=== PATIENT | male | born 1955 ===

== ENCOUNTER 2025-06-15 14:56 | Inpatient (IN) | payer MEDICARE, MEDICAID ==
[~2025-06-15] VITALS: Ht 180.3 cm; Wt 77.0 kg
[2025-06-15] MEDS ORDERED: ALBU18HF12 IH (17:33)
[2025-06-15] MEDS ORDERED: DOCU100C33 PO (17:33)
[2025-06-15] MEDS ORDERED: ASPI-1444 PO (17:33)
[2025-06-15] MEDS ORDERED: TRIL8 PO (17:33)
[2025-06-15] MEDS ORDERED: NYST30OI6 TP (17:33)
[2025-06-15] MEDS ORDERED: ATOR20TA65 PO (17:33)
[2025-06-15] MEDS ORDERED: TRI115O TP (17:33)
[2025-06-15] MEDS ORDERED: VALP250S27 PO (17:33)
[2025-06-15] MEDS ORDERED: LOPERAMIDE HCL 2 MG CAPSULE PO PRN (21:15)
[2025-06-15] MEDS ORDERED: PROMETHAZINE HCL 25 MG TABLET PO PRN (21:15)
[2025-06-15] MEDS ORDERED: MAG HYDROX/ALUMINUM HYD/SIMETH ES 30 ML SUSPENSION UDCUP PO PRN (21:15)
[2025-06-15] MEDS ORDERED: ACETAMINOPHEN 325 MG TABLET PO PRN (21:15)
[2025-06-15] MEDS ORDERED: OLANZapine 5 MG RAPDIS TABLET PO PRN (21:15)
[2025-06-15] MEDS ORDERED: TUBERCULIN, PURIFIED PROTEIN DERIVATIVE 5 TU/0.1 ML SYRINGE ID ONE ×2 (21:15)
[2025-06-15] MEDS ORDERED: ZOLPIDEM TARTRATE 10 MG TABLET PO PRN (21:15)
[2025-06-15] MEDS ORDERED: MAGNESIUM HYDROXIDE SUSPENSION 30 ML UDCUP PO PRN (21:15)
[2025-06-15] MEDS ORDERED: GuaiFENesin/D-METHORPHAN [SUGAR-FREE] 200-20MG/10 ML SYRUP UDCUP PO PRN (21:15)
[2025-06-15 21:20] LABS: CALCIUM, TOTAL 9.5 mg/dL (8.8-10.5); CREATININE 0.87 mg/dL (0.60-1.30); GLOMERULAR FILTR. RATE CALC > 60 mL/min (>60); GLUCOSE,RANDOM 100 mg/dL (70-110); PLATELET COUNT (AUTO) 217 K/uL (150-450); RED BLOOD CELL COUNT(AUTO) 4.28 MIL/uL (4.50-5.90); RED CELL DISTRIBUTION WIDTH 14.5 % (11.5-14.5); SODIUM SERUM 141 mmol/L (136-145); UREA NITROGEN, BLOOD 12 mg/dL (7-18); WHITE BLOOD COUNT (AUTO) 3.7 K/uL (4.5-11.0)
[2025-06-15 22:36] LABS: COVID AG,FIA SOURCE NASAL SWAB
[2025-06-15 22:53] LABS: SARS-COV2 (COVID) ANTIGEN,FIA Negative (Negative)
[2025-06-16 04:46] VITALS: BP 119/88; PULSE 82; RESP 18; TEMP 97.1; O2SAT 99
[2025-06-16] MEDS ORDERED: THIAMINE 100 MG TABLET PO SCH (09:00)
[2025-06-16] MEDS ORDERED: PALIPERIDONE PALMITATE 234 MG/1.5 ML SYRINGE IM ONE (09:00)
[2025-06-16] MEDS ORDERED: DULoxetine HCL 20 MG CAPSULE PO SCH (09:00)
[2025-06-16] MEDS: MULTIVITAMINS WITH MINERALS, THERAPEUTIC TABLET PO SCH (09:06)
[2025-06-16] MEDS: THIAMINE 100 MG TABLET PO SCH (09:07)
[2025-06-16] MEDS: FOLIC ACID 1 MG TABLET PO SCH (09:07)
[2025-06-16] MEDS: DULoxetine HCL 20 MG CAPSULE PO SCH (09:07)
[2025-06-16] MEDS: DIVALPROEX SODIUM 500 MG ER TABLET PO SCH (09:07)
[2025-06-16] MEDS: PALIPERIDONE PALMITATE 234 MG/1.5 ML SYRINGE IM ONE (09:45)
[2025-06-16] MEDS ORDERED: ALBUTEROL SULFATE HFA 90 MCG/PUFF 8 GM INHALER IH PRN (11:45)
[2025-06-16] MEDS: ASPIRIN 81 MG CHEWABLE TABLET PO SCH (12:44)
[2025-06-16 15:43] VITALS: BP 121/76; PULSE 80; RESP 18; TEMP 98.1; O2SAT 97
[2025-06-16 20:47] VITALS: BP 124/62; PULSE 77; RESP 18; TEMP 97.8; O2SAT 100
[2025-06-16] MEDS: MELATONIN 5 MG TABLET PO SCH (21:02)
[2025-06-16] MEDS: ATORVASTATIN CALCIUM 20 MG TABLET PO SCH (21:02)
[2025-06-16] MEDS: OLANZapine 10 MG RAPDIS TABLET PO SCH (21:02)
[2025-06-16] MEDS: MEMANTINE HCL 5 MG TABLET PO SCH (21:02)
[2025-06-17] MEDS ORDERED: PNEUMOCOCCAL VACCINE POLYVALENT 0.5 ML SYRINGE [PPSV23] IM. ONE (06:15)
[2025-06-17 10:19] VITALS: BP 121/60; PULSE 108; RESP 16; TEMP 97.7; O2SAT 95
[2025-06-17] MEDS ORDERED: MELA5TAB40 PO (18:03)
[2025-06-17] MEDS ORDERED: DIVA-153 PO (18:03)
[2025-06-17] MEDS ORDERED: MEMA5TAB41 PO (18:03)
[2025-06-17] MEDS ORDERED: DULO20CA23 PO (18:03)
[2025-06-17] MEDS ORDERED: OLAN10TA26 PO (18:03)
[2025-06-17 20:04] VITALS: BP 118/86; PULSE 76; RESP 18; TEMP 98; O2SAT 97
[2025-06-18] MEDS ORDERED: AMLO-257 PO (08:44)
[2025-06-18 09:50] VITALS: BP 149/76; PULSE 75; RESP 19; TEMP 97.6; O2SAT 96
[2025-06-20] MEDS ORDERED: PALIPERIDONE PALMITATE 156 MG/ML SYRINGE IM ONE ×2 (09:00)
== END 2025-06-18 15:02 | DRG 884 ==
LOC: EMS 14:56 → 3EC 06-16 03:40 → EMS 06-16 03:54
PROVIDERS: ADMIT Psychiatry & Neurology Psychiatry; ATTEND Psychiatry & Neurology Psychiatry
PROC: GZHZZZZ Group Psychotherapy (ICD-10-PCS; principal; 2025-06-16)
PROC: GZ58ZZZ Individual Psychotherapy, Cognitive-Behavioral (ICD-10-PCS; 2025-06-16)
PROC: GZ56ZZZ Individual Psychotherapy, Supportive (ICD-10-PCS; 2025-06-16)
DX: F09 Unspecified mental disorder due to known physiological condition (principal); N18.9 Chronic kidney disease, unspecified; F20.0 Paranoid schizophrenia; E78.00 Pure hypercholesterolemia, unspecified; F41.9 Anxiety disorder, unspecified; Z20.822 Contact with and (suspected) exposure to COVID-19; Z79.899 Other long term (current) drug therapy
CPT/HCPCS: 70450; 80048; 80164; 85025; 87081; 97110; 97162; 97167; 97535; 99285; G0480